=== PATIENT | male | born 1950 | race African-American/Black ===

== ENCOUNTER 2017-06-21 22:13 | Emergency (ER) | payer MEDICARE, OTHER ==
[~2017-06-21] VITALS: Ht 198.1 cm; Wt 81.8 kg
[~2017-06-21 22:13] MED LIST: BUPR150T8 PO; FAMO20TA8 PO; FLUT16H NASAL; GABA-531 PO; GLIP10 PO; IPRA4AER IH; MELO-273 PO; MONT10TA21 PO
[2017-06-21 22:32] LABS: GLUCOSE,POINT OF CARE 295 MG/DL (70-110)
[2017-06-21 23:00] LABS: BASOPHILS # (AUTO) 0.07 K/uL (0.00-0.20); BASOPHILS % (AUTO) 1.1 % (0.0-2.0); EOSINOPHILS # (AUTO) 0.37 K/uL (0.00-0.70); EOSINOPHILS % (AUTO) 5.62 % (1.0-6.0); HEMATOCRIT 42.2 % (41-53); HEMOGLOBIN 13.4 g/dL (13.5-17.5); LYMPHOCYTES # (AUTO) 2.1 K/uL (1.0-4.8); LYMPHOCYTES % (AUTO) 31.6 % (22.0-44.0); MEAN CORPUSCULAR HEMOGLOBIN 25.5 pg (26.0-34.0); MEAN CORPUSCULAR HGB CONC 31.9 G/dL (31.0-37.0); MEAN CORPUSCULAR VOLUME 80 fL (80-100); MONOCYTES # (AUTO) 0.8 K/uL (0.1-1.0); MONOCYTES % (AUTO) 12.7 % (2.0-9.0); NEUTROPHILS # (AUTO) 3.2 K/uL (1.8-7.7); PLATELET COUNT (AUTO) 201 K/uL (150-450); RED BLOOD CELL COUNT(AUTO) 5.27 MIL/uL (4.50-5.90); RED CELL DISTRIBUTION WIDTH 13.9 % (11.5-14.5); WHITE BLOOD COUNT (AUTO) 6.6 K/uL (4.5-11.0)
[2017-06-21] MEDS ORDERED: SODIUM CHLORIDE 0.9% 1,000 ML IV ONE (23:00)
[2017-06-21 23:10] LABS: ANION GAP 11 mmol/L (8-16); CALCIUM, TOTAL 8.8 mg/dL (8.8-10.5); CARBON DIOXIDE 26 mmol/L (22-29); CHLORIDE 103 mmol/L (98-107); CREATININE 1.22 mg/dL (0.60-1.30); GLOMERULAR FILTR. RATE CALC > 60 mL/min (>60); POTASSIUM 3.5 mmol/L (3.5-5.1); SODIUM SERUM 140 mmol/L (136-145); UREA NITROGEN, BLOOD 13 mg/dL (7-18)
[2017-06-21 23:15] LABS: ALANINE AMINOTRANSFERASE 14 U/L (12-78); ALBUMIN 2.9 g/dL (3.4-5.0); ASPARTATE AMINOTRANSFERASE 11 U/L (15-37); BILIRUBIN,TOTAL 0.6 mg/dL (0.1-1.0); TOTAL PROTEIN, SERUM 6.7 g/dL (6.4-8.2)
[2017-06-21 23:52] LABS: GLUCOSE,POINT OF CARE 278 MG/DL (70-110)
[2017-06-22] MEDS ORDERED: INSULIN REGULAR, HUMAN 100 UNITS/ML IVP ONE (00:15)
[2017-06-22 01:12] LABS: GLUCOSE,POINT OF CARE 193 MG/DL (70-110)
[2017-06-22 01:32] LABS: APPEARANCE,URINE TURBID (CLEAR); GLUCOSE, URINE (UA) 250 mg/dL (NEGATIVE); KETONES,URINE TRACE mg/dL (NEGATIVE); LEUKOCYTE ESTERASE ,URINE LARGE (NEGATIVE); OCCULT BLOOD,URINE LARGE (NEGATIVE); PH,URINE 8.5 (5.0-8.0); PROTEIN,URINE SEE CONFIRM (NEGATIVE)
[2017-06-22 01:33] LABS: ADD UA MICROSCOPIC YES
[2017-06-22 01:45] LABS: SULFOSALICYLIC ACID,URINE 2+ (Negative)
[2017-06-22 01:46] LABS: RBC,URINE 51-100 /HPF (0-2); WBC,URINE 26-50 /HPF (0-5)
[2017-06-22] MEDS ORDERED: CIPROFLOXACIN HCL 250 MG TABLET PO ONE ×2 (02:30→02:45)
[2017-06-22 02:45] VITALS: BP 147/87
[2017-06-24] MEDS ORDERED: METF500T4 PO (17:04)
== END 2017-06-22 04:04 | disposition home or self-care (01) ==
LOC: EMS 22:17
DX: E11.65 Type 2 diabetes mellitus with hyperglycemia (principal); N39.0 Urinary tract infection, site not specified; F17.210 Nicotine dependence, cigarettes, uncomplicated; I10 Essential (primary) hypertension; Z91.14 Patient's other noncompliance with medication regimen; Z79.4 Long term (current) use of insulin
CPT/HCPCS: 36415; 80053; 81001; 82962; 85025; 87077; 87086; 96361; 96374; 99284; 99406; J1815; J7030

== ENCOUNTER 2017-06-22 04:23 | Emergency (ER) | payer MEDICARE, OTHER ==
[~2017-06-22] VITALS: Ht 188 cm; Wt 81.8 kg
[2017-06-22 06:08] VITALS: BP 127/83
[2017-06-24] MEDS ORDERED: METF500T4 PO (17:04)
[2017-07-02] MEDS ORDERED: AMLO-511 PO (17:09)
[2017-07-02] MEDS ORDERED: ATOR20TA86 PO (17:09)
[2017-07-02] MEDS ORDERED: CEFX1I IV (17:10)
[2017-07-02] MEDS ORDERED: DSS100 PO (17:10)
[2017-07-02] MEDS ORDERED: PANT40TA25 PO (17:11)
[2017-07-02] MEDS ORDERED: METF850T2 PO (17:11)
[2017-07-02] MEDS ORDERED: ACET-784 PO (17:12)
[2017-07-02] MEDS ORDERED: ALBU2TAB42 PO (17:13)
[2017-07-02] MEDS ORDERED: A20IH1 IH (17:13)
[2017-07-02] MEDS ORDERED: INSNOV SQ (17:14)
[2017-07-02] MEDS ORDERED: MOM30 PO (17:15)
[2017-07-20] MEDS ORDERED: PROP10 PO (12:25)
[2017-07-20] MEDS ORDERED: CARB1TAB35 PO (12:25)
[2017-07-20] MEDS ORDERED: FINA5TAB41 PO (12:25)
[2017-07-20] MEDS ORDERED: TAMS0.4C32 PO (12:25)
[2017-07-20] MEDS ORDERED: METF500T4 PO (12:25)
[2017-07-20] MEDS ORDERED: SENN-30 PO (12:25)
[2017-07-20] MEDS ORDERED: FERG325 PO (12:25)
[2017-07-20] MEDS ORDERED: PANT40TA25 PO (12:25)
[2017-07-20] MEDS ORDERED: SITA25 PO (12:25)
[2017-07-20] MEDS ORDERED: DSS100 PO (12:25)
== END 2017-06-22 10:19 | disposition home or self-care (01) ==
LOC: EMS 04:25
DX: E11.65 Type 2 diabetes mellitus with hyperglycemia (principal); N39.0 Urinary tract infection, site not specified; F17.210 Nicotine dependence, cigarettes, uncomplicated; Z79.4 Long term (current) use of insulin
CPT/HCPCS: 99283